=== PATIENT | male | born 2000 | race Caucasian/White ===

== ENCOUNTER 2018-11-13 23:11 | Emergency (ER) | payer SELFPAY ==
--- NOTE | 2018-11-13 23:38 | EDPHYS ---
Physician Documentation [facility] Name: Jason Galeano Age: 18 yrs Sex: Male : 2000 Arrival Date: 11/13/2018 Time: 23:18 Bed 23 Private MD: ED Physician Quinn Rivers HPI: 11/13 23:32 This 18 yrs old Male presents to ER via Ambulatory with complaints of Rash. rn 23:32 The patient's rash thought to be caused by Dermatitis. The rash is located on the body rn diffusely. The rash can be described as erythematous, urticarial, vesicular. 23:32 Onset: The symptoms/episode began/occurred 4 day(s) ago. Severity of symptoms: At their rn worst the symptoms were moderate in the emergency department the symptoms are unchanged. Treatment given at home: OTC lotion/cream. The patient has not experienced similar symptoms in the past. Reports working outside, found out day after that was exposed to poison sumac, + itching and rash that is spreading, using lotion with only mild improvement, another with similar symptoms and rash, no fever, no other exposure. NO trouble breathing or swelling.. Historical: - Allergies: 23:31 No Known Allergies; rv - Home Meds: 23:31 None [Active]; rv - PMHx: 23:31 None; rv - PSHx: 23:31 None; rv - Immunization history:: Adult Immunizations up to date. - Social history:: Smoking status: Patient/guardian denies using tobacco, never smoked, Patient uses street drugs, marijuana. - Ebola Screening: : No symptoms or risks identified at this time. - Family history:: not pertinent. - Hospitalizations: : No recent hospitalization is reported. ROS: 23:32 Constitutional: Negative for fever, chills, and weight loss, Skin: + diffuse skin rash rn Exam: 23:32 Constitutional: This is a well developed, well nourished patient who is awake, alert, rn and in no acute distress. Skin: Warm, dry, + diffuse erythematous and vesicular lesions, no signs of secondary infection, no bullae or skin sloughing. No oral lesions. Vital Signs: 23:30 BP 127 / 74; Pulse 61; Resp 16; Temp 97.9; Pulse Ox 100% ; Weight 74.84 kg; Height 5 rv ft. 10 in. (177.80 cm); Pain 0/10; 23:44 BP 111 / 74; Pulse 66; Resp 16; Temp 98; Pulse Ox 99% ; rv 23:30 Body Mass Index 23.67 (74.84 kg, 177.80 cm) rv MDM: 23:28 Patient medically screened. rn 23:32 Differential diagnosis: allergic reaction, poison sumac. Data reviewed: vital signs, rn nurses notes, and as a result, I will discharge patient. Counseling: I had a detailed discussion with the patient and/or guardian regarding: the historical points, exam findings, and any diagnostic results supporting the discharge/admit diagnosis, the need for outpatient follow up, to return to the emergency department if symptoms worsen or persist or if there are any questions or concerns that arise at home. Special discussion: I discussed with the patient/guardian in detail that at this point there is no indication for admission to the hospital. It is understood, however, that if the symptoms persist or worsen the patient needs to return immediately for re-evaluation. Administered Medications: 23:36 Drug: SOLU-Medrol 125 mg Route: IM; Site: right deltoid; rv 23:44 Follow up: Response: No adverse reaction rv Disposition: 11/13/18 23:38 Discharged to Home. Impression: Dermatitis, unspecified - Poison Sumac. - Condition is Stable. - Discharge Instructions: Poison April Dermatitis. - Prescriptions for Medrol (Yobani) 4 mg Oral Tablets, Dose Pack - take 1 tablet by ORAL route as directed - follow package instructions; 1 packet. - Medication Reconciliation Form, Thank You Letter, Antibiotic Education, Prescription Opioid Use form. - Follow up: Private Physician; When: As needed; Reason: Recheck today's complaints, Re-evaluation by your physician. - Problem is new. - Symptoms are unchanged. Signatures: Quinn Rivers MD MD rn Mert Mclain RN RN rv Corrections: (The following items were deleted from the chart) 23:44 23:38 11/13/2018 23:38 Discharged to Home. Impression: Dermatitis, unspecified - Poison rv Sumac. Condition is Stable. Forms are Medication Reconciliation Form, Thank You Letter, Antibiotic Education, Prescription Opioid Use. Follow up: Private Physician; When: As needed; Reason: Recheck today's complaints, Re-evaluation by your physician. Problem is new. Symptoms are unchanged. rn
--- NOTE | 2018-11-13 23:38 | ER ---
Nurse's Notes [facility] Name: Jason Galeano Age: 18 yrs Sex: Male : 2000 Arrival Date: 11/13/2018 Time: 23:18 Bed 23 Private MD: Diagnosis: Dermatitis, unspecified-Poison Sumac Presentation: 11/13 23:28 Presenting complaint: Patient states: I cutdown a three and exposed to poison sumac 4 rv days ago. having some rashes. treat it with OTC, calamine lotion. rash on my face has gone down but my parents are concerned. Transition of care: patient was not received from another setting of care. Onset of symptoms was November 09, 2018 at 08:00. Risk Assessment: Do you want to hurt yourself or someone else? Patient reports no desire to harm self or others. Initial Sepsis Screen: Does the patient meet any 2 criteria? No. Patient's initial sepsis screen is negative. Does the patient have a suspected source of infection? No. Patient's initial sepsis screen is negative. Care prior to arrival: None. 23:28 Method Of Arrival: Ambulatory rv 23:28 Acuity: LUIGI 5 rv Historical: - Allergies: 23:31 No Known Allergies; rv - Home Meds: 23:31 None [Active]; rv - PMHx: 23:31 None; rv - PSHx: 23:31 None; rv - Immunization history:: Adult Immunizations up to date. - Social history:: Smoking status: Patient/guardian denies using tobacco, never smoked, Patient uses street drugs, marijuana. - Ebola Screening: : No symptoms or risks identified at this time. - Family history:: not pertinent. - Hospitalizations: : No recent hospitalization is reported. Screenin:32 Abuse screen: Denies threats or abuse. Denies injuries from another. Nutritional rv screening: No deficits noted. Tuberculosis screening: No symptoms or risk factors identified. Fall Risk None identified. Assessment: 23:31 General: Appears in no apparent distress. comfortable, Behavior is calm, cooperative. rv Pain: Complains of pain in generalized Quality of pain is described as burning. Neuro: Level of Consciousness is awake, alert, obeys commands, Oriented to person, place, time, situation. Cardiovascular: Patient's skin is warm and dry. Respiratory: Airway is patent. GI: No signs and/or symptoms were reported involving the gastrointestinal system. : No signs and/or symptoms were reported regarding the genitourinary system. EENT: No signs and/or symptoms were reported regarding the EENT system. Derm: Rash noted that is itchy. Musculoskeletal: No signs and/or symptoms reported regarding the musculoskeletal system. Vital Signs: 23:30 BP 127 / 74; Pulse 61; Resp 16; Temp 97.9; Pulse Ox 100% ; Weight 74.84 kg; Height 5 rv ft. 10 in. (177.80 cm); Pain 0/10; 23:44 BP 111 / 74; Pulse 66; Resp 16; Temp 98; Pulse Ox 99% ; rv 23:30 Body Mass Index 23.67 (74.84 kg, 177.80 cm) rv ED Course: 23:18 Patient arrived in ED. es 23:28 Mert Mclain RN is Primary Nurse. rv 23:28 Quinn Rivers MD is Attending Physician. rn 23:30 Triage completed. rv 23:32 Patient has correct armband on for positive identification. Bed in low position. Call rv light in reach. Side rails up X 1. Pulse ox on. NIBP on. 23:32 Patient placed in an exam room, on a stretcher, on pulse oximetry, Patient notified of rv wait time. 23:44 No provider procedures requiring assistance completed. Patient did not have IV access rv during this emergency room visit. Administered Medications: 23:36 Drug: SOLU-Medrol 125 mg Route: IM; Site: right deltoid; rv 23:44 Follow up: Response: No adverse reaction rv Outcome: 23:38 Discharge ordered by . rn 23:44 Discharged to home ambulatory. rv 23:44 Condition: good 23:44 Discharge instructions given to patient, Instructed on discharge instructions, follow up and referral plans. medication usage, Demonstrated understanding of instructions, follow-up care, medications, Prescriptions given X 1. 23:44 Patient left the ED. rv Signatures: Jenni Mitchell Roman, MD MD rn Vicente, Ronaldo, RN RN rv
[2018-11-13] MEDS ORDERED: METHYLPREDNISOLONE 125 MG INJ ONE (23:50)
== END 2018-11-13 23:44 | disposition home or self-care (01) ==
LOC: ER 23:11
DX: L25.5 Unspecified contact dermatitis due to plants, except food (principal)
CPT/HCPCS: 96372; 99283; J2930

== ENCOUNTER 2018-11-25 21:23 | Emergency (ER) | payer OTHER, SELFPAY ==
[2018-11-25] MEDS ORDERED: SMZ./TMP. 800/160 MG TABLET ONE (22:11)
[2018-11-25] MEDS ORDERED: CLINDAMYCIN HCL 150 MG CAP ONE (22:11)
--- NOTE | 2018-11-26 00:45 | ER ---
Nurse's Notes [facility] Name: Jason Galeano Age: 18 yrs Sex: Male : 2000 Arrival Date: 11/25/2018 Time: 21:28 Bed 6 Private MD: Diagnosis: Cellulitis of right lower limb Presentation: 11/25 21:35 Presenting complaint: Patient states: i got bitten by a spider ( becki agustin) last rr5 Monday at right lower leg. started like a blister and I pop it out then now it became like this. no fever episodes. 21:35 Transition of care: patient was not received from another setting of care. Onset of rr5 symptoms was November 20, 2018. Risk Assessment: Do you want to hurt yourself or someone else? Patient reports no desire to harm self or others. Initial Sepsis Screen: Does the patient meet any 2 criteria? No. Patient's initial sepsis screen is negative. Does the patient have a suspected source of infection? No. Patient's initial sepsis screen is negative. Care prior to arrival: None. 21:35 Method Of Arrival: Ambulatory rr5 21:35 Acuity: LUIGI 3 rr5 Triage Assessment: 21:20 Bite description: bite sustained to right lower leg by a spider, animal information: rr5 vaccination(s) is unknown. 21:20 General: Appears in no apparent distress. comfortable, Behavior is calm, cooperative, rr5 appropriate for age. Historical: - Allergies: 21:46 No Known Allergies; rr5 - Home Meds: 21:46 None [Active]; rr5 - PMHx: 21:46 None; rr5 - PSHx: 21:46 None; rr5 - Immunization history:: Adult Immunizations up to date, Last tetanus immunization: unknown. - Social history:: Smoking status: Patient/guardian denies using tobacco, Patient uses street drugs, marijuana, Patient/guardian denies using alcohol. - Ebola Screening: : Patient negative for fever greater than or equal to 101.5 degrees Fahrenheit, and additional compatible Ebola Virus Disease symptoms Patient denies exposure to infectious person Patient denies travel to an Ebola-affected area in the 21 days before illness onset. Screenin:30 Abuse screen: Denies threats or abuse. Denies injuries from another. Nutritional rr5 screening: No deficits noted. Tuberculosis screening: No symptoms or risk factors identified. Fall Risk None identified. Total Tirado Fall Scale indicates No Risk (0-24 pts). Assessment: 21:35 General: Appears in no apparent distress. comfortable, Behavior is calm, cooperative, rr5 appropriate for age. 21:35 Pain: Complains of pain in right lower leg Pain does not radiate. Pain currently is 4 rr5 out of 10 on a pain scale. Quality of pain is described as aching, Pain began gradually, Is intermittent. Neuro: Level of Consciousness is awake, alert, obeys commands, Oriented to person, place, time, situation, Appropriate for age. Cardiovascular: Capillary refill < 3 seconds Patient's skin is warm and dry. Respiratory: Airway is patent Respiratory effort is even, unlabored, Respiratory pattern is regular, symmetrical. GI: No signs and/or symptoms were reported involving the gastrointestinal system. : No signs and/or symptoms were reported regarding the genitourinary system. EENT: No signs and/or symptoms were reported regarding the EENT system. Derm: Skin is intact, Skin is pink, warm \T\ dry. Wound noted right lower leg Wound is ruptured blister appearance, open wound with small drainage. Musculoskeletal: Capillary refill < 3 seconds, Range of motion: intact in all extremities. 22:10 Reassessment: Patient appears in no apparent distress at this time. Patient is alert, rr5 oriented x 3, equal unlabored respirations, skin warm/dry/pink. discharge instruction given and explained without complaints made. Patient states feeling better. Patient states symptoms have improved. Vital Signs: 21:35 BP 119 / 66; Pulse 79; Resp 17; Temp 98.5; Pulse Ox 100% ; Weight 74.84 kg; Height 5 rr5 ft. 10 in. (177.80 cm); Pain 4/10; 21:35 Body Mass Index 23.67 (74.84 kg, 177.80 cm) rr5 ED Course: 21:28 Patient arrived in ED. do 21:30 Patient has correct armband on for positive identification. Bed in low position. Call rr5 light in reach. Side rails up X2. 21:32 Gianni De La Vega PA is PHCP. cp 21:32 Robbie Hartman MD is Attending Physician. cp 21:37 Alessandro Teixeira RN is Primary Nurse. rr5 21:45 Triage completed. rr5 21:47 Arm band placed on. rr5 21:56 Amandeep Kelly MD is Referral Physician. cp 21:56 Referral Physician role handed off by Amandeep Kelly MD cp 21:57 Amandeep Kelly MD is Referral Physician. cp 22:00 Wound care: to cellulitis located on right lower leg was cleaned with Hibiclens, rr5 irrigated with normal saline, dressed with Neosporin, 4X4s, Kerlix, Patient tolerated well. 22:10 No provider procedures requiring assistance completed. Patient did not have IV access rr5 during this emergency room visit. Administered Medications: 22:08 Drug: Clindamycin 300 mg Route: PO; rr5 22:11 Follow up: Response: Medication administered at discharge. rr5 22:08 Drug: Bactrim (160 mg-800 mg (DS) 1 tablet Route: PO; rr5 22:11 Follow up: Response: Medication administered at discharge. rr5 Outcome: 21:57 Discharge ordered by MD. cp 22:10 Discharged to home ambulatory, with family. rr5 22:10 Condition: stable 22:10 Discharge instructions given to patient, Instructed on discharge instructions, follow up and referral plans. medication usage, Demonstrated understanding of instructions, follow-up care, medications, Prescriptions given X 2. 22:14 Patient left the ED. rr5 Signatures: Gianni De La Vega PA PA cp Ogletree, Danielle do Roque, Raymond, RN RN rr5
--- NOTE | 2018-11-26 00:45 | EDPHYS ---
Physician Documentation [facility] Name: Jason Galeano Age: 18 yrs Sex: Male : 2000 Arrival Date: 11/25/2018 Time: 21:28 Bed 6 Private MD: ED Physician Robbie Hartman HPI: 11/25 21:50 This 18 yrs old Male presents to ER via Ambulatory with complaints of Insect cp Bite. 21:50 The patient was bitten on the right lower leg, by a spider. cp 21:50 Onset: The symptoms/episode began/occurred last week. Associated signs and symptoms: cp Pertinent positives: erythema at site, swelling at site, tenderness, drainage, Pertinent negatives: fever. Historical: - Allergies: 21:46 No Known Allergies; rr5 - Home Meds: 21:46 None [Active]; rr5 - PMHx: 21:46 None; rr5 - PSHx: 21:46 None; rr5 - Immunization history:: Adult Immunizations up to date, Last tetanus immunization: unknown. - Social history:: Smoking status: Patient/guardian denies using tobacco, Patient uses street drugs, marijuana, Patient/guardian denies using alcohol. - Ebola Screening: : Patient negative for fever greater than or equal to 101.5 degrees Fahrenheit, and additional compatible Ebola Virus Disease symptoms Patient denies exposure to infectious person Patient denies travel to an Ebola-affected area in the 21 days before illness onset. ROS: 21:53 Constitutional: Negative for body aches, chills, fever, poor PO intake. cp 21:53 Eyes: Negative for injury, pain, redness, and discharge. cp 21:53 Skin: Positive for erythema, swelling, of the right lower leg. cp 21:53 Cardiovascular: Negative for chest pain. cp 21:53 Respiratory: Negative for cough. 21:53 Abdomen/GI: Negative for abdominal pain. 21:53 All other systems are negative. Exam: 21:55 Constitutional: The patient appears in no acute distress, alert, awake, non-toxic, well cp developed, well nourished. 21:55 Head/Face: Normocephalic, atraumatic. cp 21:55 Chest/axilla: Inspection: normal. cp 21:55 Cardiovascular: Rate: normal. 21:55 Respiratory: the patient does not display signs of respiratory distress, Respirations: normal, no use of accessory muscles, labored breathing, is not present. 21:55 Skin: cellulitis, that is mild, well demarcated, on the right lower leg. Vital Signs: 21:35 BP 119 / 66; Pulse 79; Resp 17; Temp 98.5; Pulse Ox 100% ; Weight 74.84 kg; Height 5 rr5 ft. 10 in. (177.80 cm); Pain 4/10; 21:35 Body Mass Index 23.67 (74.84 kg, 177.80 cm) rr5 MDM: 21:32 Patient medically screened. cp 21:57 Data reviewed: vital signs, nurses notes, and as a result, I will discharge patient. cp 21:57 Counseling: I had a detailed discussion with the patient and/or guardian regarding: the cp historical points, exam findings, and any diagnostic results supporting the discharge/admit diagnosis, the need for outpatient follow up, a general surgeon. Administered Medications: 22:08 Drug: Clindamycin 300 mg Route: PO; rr5 22:11 Follow up: Response: Medication administered at discharge. rr5 22:08 Drug: Bactrim (160 mg-800 mg (DS) 1 tablet Route: PO; rr5 22:11 Follow up: Response: Medication administered at discharge. rr5 Disposition: 11/26 09:30 Co-signature as Attending Physician, Robbie Hartman MD I agree with the assessment and wa plan of care. Disposition: 11/25/18 21:57 Discharged to Home. Impression: Cellulitis of right lower limb. - Condition is Stable. - Discharge Instructions: Cellulitis, Adult. - Prescriptions for Clindamycin HCl 300 mg Oral Capsule - take 1 capsule by ORAL route every 6 hours for 10 days; 40 capsule. Bactrim DS 800- 160 mg Oral Tablet - take 1 tablet by ORAL route every 12 hours for 10 days; 20 tablet. - Medication Reconciliation Form, Thank You Letter, Antibiotic Education, Prescription Opioid Use form. - Follow up: Amandeep Kelly MD; When: 1 - 2 days; Reason: Wound Recheck. Follow up: Amandeep Kelly MD; When: 2 - 3 days; Reason: Wound Recheck. - Problem is new. - Symptoms have improved. Signatures: Dispatcher [employer] EDRI Page, Gianni, PA PA cp Robbie Hartman MD MD wa Roque, Raymond RN RN rr5 Corrections: (The following items were deleted from the chart) 11/25 22:14 21:57 11/25/2018 21:57 Discharged to Home. Impression: Cellulitis of right lower limb. rr5 Condition is Stable. Forms are Medication Reconciliation Form, Thank You Letter, Antibiotic Education, Prescription Opioid Use. Follow up: Amandeep Kelly; When: 2 - 3 days; Reason: Wound Recheck. Problem is new. Symptoms have improved. cp
== END 2018-11-25 22:14 | disposition home or self-care (01) ==
LOC: ER 21:23
DX: L03.115 Cellulitis of right lower limb (principal)
CPT/HCPCS: 87070; 87205; 99284

== ENCOUNTER 2019-01-28 07:38 | Emergency (ER) | payer OTHER ==
[2019-01-28] MEDS ORDERED: CEPHALEXIN 250 MG CAP ONE (08:01)
[2019-01-28] MEDS ORDERED: SMZ./TMP. 800/160 MG TABLET ONE (08:01)
--- NOTE | 2019-01-28 08:07 | EDPHYS ---
Physician Documentation [facility] Name: Jason Galeano Age: 18 yrs Sex: Male : 2000 Arrival Date: 01/28/2019 Time: 07:42 Bed 5 Private MD: ED Physician Gianni Pretty HPI: 01/28 08:03 This 18 yrs old Male presents to ER via Ambulatory with complaints of kb Infection on leg. 08:04 The patient presents with an abscess of the right knee. Description: draining, kb erythematous, swollen. Onset: The symptoms/episode began/occurred 2 day(s) ago. Possible cause(s): insect sting. Associated signs and symptoms: Pertinent positives: drainage, erythema, swelling, Pertinent negatives: foreign body sensation, fever, headache, nausea, shortness of breath, vomiting. Modifying factors: the symptoms are alleviated by nothing, the symptoms are aggravated by nothing. Severity of symptoms: At their worst the symptoms were moderate, in the emergency department the symptoms are unchanged. The patient has not experienced similar symptoms in the past. The patient has not recently seen a physician. Historical: - Allergies: 07:50 No Known Allergies; tw2 - Home Meds: 07:50 None [Active]; tw2 - PMHx: 07:50 None; tw2 - PSHx: 07:50 None; tw2 - Immunization history:: Adult Immunizations. - Social history:: Smoking status: . - Ebola Screening: : Patient denies travel to an Ebola-affected area in the 21 days before illness onset. ROS: 07:59 Constitutional: Negative for fever, chills, and weight loss, ENT: Negative for injury, kb pain, and discharge, Neck: Negative for injury, pain, and swelling, Cardiovascular: Negative for chest pain, palpitations, and edema, Respiratory: Negative for shortness of breath, cough, wheezing, and pleuritic chest pain, Abdomen/GI: Negative for abdominal pain, nausea, vomiting, diarrhea, and constipation, MS/Extremity: Negative for injury and deformity, Neuro: Negative for headache, weakness, numbness, tingling, and seizure. 07:59 Skin: Positive for abscess, erythema, swelling, of the right knee. Exam: 07:59 Constitutional: This is a well developed, well nourished patient who is awake, alert, kb and in no acute distress. Head/Face: Normocephalic, atraumatic. Neck: Trachea midline, no thyromegaly or masses palpated, and no cervical lymphadenopathy. Supple, full range of motion without nuchal rigidity, or vertebral point tenderness. No Meningismus. Chest/axilla: Normal chest wall appearance and motion. Nontender with no deformity. No lesions are appreciated. Cardiovascular: Regular rate and rhythm with a normal S1 and S2. No gallops, murmurs, or rubs. Normal PMI, no JVD. No pulse deficits. Respiratory: Lungs have equal breath sounds bilaterally, clear to auscultation and percussion. No rales, rhonchi or wheezes noted. No increased work of breathing, no retractions or nasal flaring. Abdomen/GI: Soft, non-tender, with normal bowel sounds. No distension or tympany. No guarding or rebound. No evidence of tenderness throughout. MS/ Extremity: Pulses equal, no cyanosis. Neurovascular intact. Full, normal range of motion. Neuro: Awake and alert, GCS 15, oriented to person, place, time, and situation. Cranial nerves II-XII grossly intact. Motor strength 5/5 in all extremities. Sensory grossly intact. Cerebellar exam normal. Normal gait. 07:59 Skin: abscess, that is small, of the right knee, with drainage, with fluctuance, with surrounding cellulitis, that is mild. Vital Signs: 07:51 BP 114 / 75; Pulse 113; Resp 18; Temp 98.1(O); Pulse Ox 98% on R/A; Weight 74.84 kg tw2 (R); Height 5 ft. 10 in. (177.80 cm); Pain 8/10; 08:07 BP 118 / 69; Pulse 83; Resp 17; Pulse Ox 99% on R/A; tw2 07:51 Body Mass Index 23.67 (74.84 kg, 177.80 cm) tw2 Procedures: 07:59 I \T\ D: Incision and drainage was performed for an abscess of the right right knee kb Drained moderate amount purulent fluid. Dressing: sterile 4x4 gauze, Abscess was open and draining already, drained a moderate amount of purulent fluid with pressure. MDM: 07:45 Patient medically screened. [facility] 08:03 Data reviewed: vital signs, nurses notes. Data interpreted: Pulse oximetry: on room air kb is 98 %. Interpretation: normal. Counseling: I had a detailed discussion with the patient and/or guardian regarding: the historical points, exam findings, and any diagnostic results supporting the discharge/admit diagnosis, the need for outpatient follow up, a family practitioner, to return to the emergency department if symptoms worsen or persist or if there are any questions or concerns that arise at home. 01/28 07:59 Order name: Wound Culture kb 01/28 08:07 Order name: Wound dressing; Complete Time: 08:07 tw2 Administered Medications: 08:05 Drug: Bactrim (160 mg-800 mg (DS) 1 tablet Route: PO; tw2 08:14 Follow up: Response: No adverse reaction tw2 08:05 Drug: KeFLEX 500 mg Route: PO; tw2 08:14 Follow up: Response: No adverse reaction tw2 Disposition: 01/28/19 08:06 Discharged to Home. Impression: Cutaneous abscess of right lower limb. - Condition is Stable. - Discharge Instructions: Skin Abscess, [id number], Incision and Drainage, Care After. - Prescriptions for Keflex 500 mg Oral Capsule - take 1 capsule by ORAL route every 8 hours for 10 days; 30 capsule. Bactrim DS 800- 160 mg Oral Tablet - take 1 tablet by ORAL route every 12 hours for 10 days; 20 tablet. - Medication Reconciliation Form, Thank You Letter, Antibiotic Education, Prescription Opioid Use, Work release form form. - Follow up: Emergency Department; When: As needed; Reason: Worsening of condition. Follow up: Private Physician; When: 2 - 3 days; Reason: Recheck today's complaints, Continuance of care, Re-evaluation by your physician. Addendum: 01/29/2019 20:29 Co-signature as Attending Physician, Gianni Pretty MD I agree with the assessment and c aldana plan of care. Signatures: Dispatcher [employer] Chica Shearer, ELECTROPHYSIOLOGY TECH-C ELECTROPHYSIOLOGY TECH-Gianni Selby MD MD cha Wise, Tara, RN RN tw2 Corrections: (The following items were deleted from the chart) 01/28 08:14 08:06 01/28/2019 08:06 Discharged to Home. Impression: Cutaneous abscess of right lower tw2 limb. Condition is Stable. Forms are Work release form, Medication Reconciliation Form, Thank You Letter, Antibiotic Education, Prescription Opioid Use. Follow up: Emergency Department; When: As needed; Reason: Worsening of condition. Follow up: Private Physician; When: 2 - 3 days; Reason: Recheck today's complaints, Continuance of care, Re-evaluation by your physician. kb
--- NOTE | 2019-01-28 08:07 | ER ---
Nurse's Notes [facility] Name: Jason Galeano Age: 18 yrs Sex: Male : 2000 Arrival Date: 01/28/2019 Time: 07:42 Bed 5 Private MD: Diagnosis: Cutaneous abscess of right lower limb Presentation: 01/28 07:49 Presenting complaint: Patient states: i noticed yesterday that this got really worse on tw2 my RIGHT knee, i was bitten by a brown recluse spider previous and i know they like to bite in the same place, but its gotten a lot worse. Transition of care: patient was not received from another setting of care. Onset of symptoms was January 28, 2019. Risk Assessment: Do you want to hurt yourself or someone else? Patient reports no desire to harm self or others. Initial Sepsis Screen: Does the patient meet any 2 criteria? No. Patient's initial sepsis screen is negative. Does the patient have a suspected source of infection? No. Patient's initial sepsis screen is negative. Care prior to arrival: None. 07:49 Method Of Arrival: Ambulatory tw2 07:49 Acuity: LUIGI 3 tw2 Triage Assessment: 07:51 General: Appears in no apparent distress. Behavior is calm, cooperative, appropriate tw2 for age. Pain: Complains of pain in right knee. Historical: - Allergies: 07:50 No Known Allergies; tw2 - Home Meds: 07:50 None [Active]; tw2 - PMHx: 07:50 None; tw2 - PSHx: 07:50 None; tw2 - Immunization history:: Adult Immunizations. - Social history:: Smoking status: . - Ebola Screening: : Patient denies travel to an Ebola-affected area in the 21 days before illness onset. Screenin:51 Abuse screen: Denies threats or abuse. Nutritional screening: No deficits noted. tw2 Tuberculosis screening: No symptoms or risk factors identified. Fall Risk None identified. Assessment: 07:52 General: Appears in no apparent distress. Behavior is calm, cooperative, appropriate tw2 for age. Neuro: Level of Consciousness is awake, alert, obeys commands, Oriented to person, place, time, situation. Cardiovascular: Heart tones S1 S2 Patient's skin is warm and dry. Respiratory: Airway is patent Respiratory effort is even, unlabored, Respiratory pattern is regular, symmetrical, Breath sounds are clear bilaterally. GI: No signs and/or symptoms were reported involving the gastrointestinal system. : No signs and/or symptoms were reported regarding the genitourinary system. EENT: No signs and/or symptoms were reported regarding the EENT system. Derm: Wound noted right knee Wound is red, raised with black center scab noted on right knee. Musculoskeletal: Range of motion: intact in all extremities. Vital Signs: 07:51 BP 114 / 75; Pulse 113; Resp 18; Temp 98.1(O); Pulse Ox 98% on R/A; Weight 74.84 kg tw2 (R); Height 5 ft. 10 in. (177.80 cm); Pain 8/10; 08:07 BP 118 / 69; Pulse 83; Resp 17; Pulse Ox 99% on R/A; tw2 07:51 Body Mass Index 23.67 (74.84 kg, 177.80 cm) tw2 ED Course: 07:42 Patient arrived in ED. mr 07:42 [facility]ica Jauregui [facility]C [facility]. kb 07:42 Gianni Pretty MD is Attending Physician. kb 07:49 Arianne Leggett, MORRIS is Primary Nurse. tw2 07:49 Bed in low position. Call light in reach. tw2 07:50 Triage completed. tw2 07:50 Arm band placed on. tw2 08:08 Dressings: Rayshawn x 1 right knee 4X4s X 4; right leg Neosporin applied. tw2 08:08 No provider procedures requiring assistance completed. Patient did not have IV access tw2 during this emergency room visit. Administered Medications: 08:05 Drug: Bactrim (160 mg-800 mg (DS) 1 tablet Route: PO; tw2 08:14 Follow up: Response: No adverse reaction tw2 08:05 Drug: KeFLEX 500 mg Route: PO; tw2 08:14 Follow up: Response: No adverse reaction tw2 Outcome: 08:06 Discharge ordered by . kb 08:14 Discharged to home ambulatory. tw2 08:14 Condition: stable 08:14 Discharge instructions given to patient, Instructed on discharge instructions, follow up and referral plans. medication usage, Demonstrated understanding of instructions, follow-up care, medications, wound care, Prescriptions given X 2. 08:14 Patient left the ED. tw2 Signatures: Chica Jauregui, DRIVER RETRAINING INSTRUCTOR-C DRIVER RETRAINING INSTRUCTOR-Ckb Cecile Cabrera mr Arianne Leggett, RN RN tw2
== END 2019-01-28 08:14 | disposition home or self-care (01) ==
LOC: ER 07:38
PROC: 0J9N0ZZ Drainage of Right Lower Leg Subcutaneous Tissue and Fascia, Open Approach (ICD-10-PCS; principal; 2019-01-28)
DX: L02.415 Cutaneous abscess of right lower limb (principal)
CPT/HCPCS: 87070; 87077; 87186; 87205; 99283

== ENCOUNTER 2019-02-13 20:22 | Emergency (ER) | payer OTHER ==
--- NOTE | 2019-02-13 22:17 | ER ---
Nurse's Notes [facility] Name: Jason Galeano Age: 18 yrs Sex: Male : 2000 Arrival Date: 02/13/2019 Time: 20:25 Bed 25 Private MD: Diagnosis: Cellulitis of the Hand Presentation: 02/13 21:10 Presenting complaint: Patient states: "I started with a bump on my left hand and over aa5 the last few days it has grown and it's red and painful". 21:10 Transition of care: patient was not received from another setting of care. Onset of aa5 symptoms was February 2019. Risk Assessment: Do you want to hurt yourself or someone else? Patient reports no desire to harm self or others. Initial Sepsis Screen: Does the patient meet any 2 criteria? No. Patient's initial sepsis screen is negative. Does the patient have a suspected source of infection? No. Patient's initial sepsis screen is negative. Care prior to arrival: None. 21:10 Acuity: LUIGI 5 aa5 21:10 Method Of Arrival: Ambulatory aa5 Triage Assessment: 22:01 Bite description: bite sustained to left hand by INSECT, animal information: rv vaccination(s) is not applicable. General: Appears in no apparent distress. comfortable, Behavior is calm, cooperative. Historical: - Allergies: 21:15 No Known Allergies; aa5 - PMHx: 21:15 None; aa5 - PSHx: 21:15 None; aa5 - Immunization history:: Last tetanus immunization: unknown. - Social history:: Smoking status: Patient/guardian denies using tobacco. - Ebola Screening: : No symptoms or risks identified at this time. Screenin:00 Abuse screen: Denies threats or abuse. Denies injuries from another. Nutritional rv screening: No deficits noted. Tuberculosis screening: No symptoms or risk factors identified. Fall Risk None identified. Assessment: 21:59 General: Appears in no apparent distress. comfortable, Behavior is calm, cooperative. rv Pain: Complains of pain in left hand. Neuro: Level of Consciousness is awake, alert, obeys commands, Oriented to person, place, time, situation. Cardiovascular: Patient's skin is warm and dry. Respiratory: Airway is patent. GI: No signs and/or symptoms were reported involving the gastrointestinal system. : No signs and/or symptoms were reported regarding the genitourinary system. EENT: No signs and/or symptoms were reported regarding the EENT system. Derm: Skin is intact, Skin is pink, warm \\T\\ dry. Musculoskeletal: Swelling present in left hand. Vital Signs: 21:15 BP 113 / 62; Pulse 90; Resp 18 S; Temp 98.6(O); Pulse Ox 100% on R/A; Weight 72.57 kg aa5 (R); Height 5 ft. 10 in. (177.80 cm) (R); Pain 4/10; 21:15 Body Mass Index 22.96 (72.57 kg, 177.80 cm) aa5 ED Course: 20:25 Patient arrived in ED. ag3 20:34 Yi Asencio FNP-C is PHCP. snw 20:34 Gianni Pretty MD is Attending Physician. snw 21:10 Arm band placed on. aa5 21:15 Triage completed. aa5 21:47 Barry Mccullough PA is PHCP. [facility] 21:47 Gianni Pretty MD is Attending Physician. [facility] 21:59 Mert Mclain, MORRIS is Primary Nurse. rv 22:00 Patient has correct armband on for positive identification. Pulse ox on. NIBP on. rv 22:01 No provider procedures requiring assistance completed. Patient did not have IV access rv during this emergency room visit. 22:15 Eze Villarreal MD is Referral Physician. [facility] Administered Medications: No medications were administered Outcome: 22:16 Discharge ordered by . [facility] 22:27 Discharged to home ambulatory. rv 22:27 Condition: good 22:27 Discharge instructions given to patient, Instructed on discharge instructions, follow up and referral plans. medication usage, Demonstrated understanding of instructions, follow-up care, medications, Prescriptions given X 2. 22:27 Patient left the ED. rv Signatures: Yi Asencio FNP-C BRICK STACKER-Csnw Barry Mccullough PA PA jmm Calderon, Audri RN RN [facility] Mert Mclain RN RN Ashlie Patel 3
--- NOTE | 2019-02-13 22:18 | EDPHYS ---
Physician Documentation [facility] Name: Jason Galeano Age: 18 yrs Sex: Male : 2000 Arrival Date: 02/13/2019 Time: 20:25 Bed 25 Private MD: MIKAELA Physician Gianni Pretty HPI: 02/13 22:10 This 18 yrs old Male presents to ER via Ambulatory with complaints of Insect jmm Bite. 22:10 The patient or guardian reports pain. Onset: The symptoms/episode began/occurred jmm gradually. Modifying factors: The symptoms are alleviated by nothing, the symptoms are aggravated by nothing. Associated signs and symptoms: Pertinent negatives: fever. This is a 18 year old male with no known chronic medical conditions that presents to the ED with complaints of erythema to the left hand. Patient is unsure of the cause. Denies known injury. Swelling has increased over the past 3 days. . Historical: - Allergies: 21:15 No Known Allergies; aa5 - PMHx: 21:15 None; aa5 - PSHx: 21:15 None; aa5 - Immunization history:: Last tetanus immunization: unknown. - Social history:: Smoking status: Patient/guardian denies using tobacco. - Ebola Screening: : No symptoms or risks identified at this time. ROS: 22:10 Constitutional: Negative for fever, chills, and weight loss, Cardiovascular: Negative jmm for chest pain, palpitations, and edema, Respiratory: Negative for shortness of breath, cough, wheezing, and pleuritic chest pain, Abdomen/GI: Negative for abdominal pain, nausea, vomiting, diarrhea, and constipation. 22:10 Skin: Positive for erythema, swelling. 22:10 All other systems are negative. Exam: 22:10 Constitutional: This is a well developed, well nourished patient who is awake, alert, jmm and in no acute distress. Head/Face: atraumatic. Eyes: EOMI, no conjunctival erythema appreciated ENT: Moist Mucus Membranes Neck: Trachea midline, Supple Chest/axilla: Normal chest wall appearance and motion. Cardiovascular: Regular rate and rhythm. No edema appreciated Respiratory: Normal respirations, no respiratory distress appreciated Abdomen/GI: Non distended, soft Back: Normal ROM 22:10 Musculoskeletal/extremity: FROM noted to the left 1st phalanx, < 2 sec distal cap refill, NVI. 22:10 Skin: erythema and induration noted to the base of the left 1st phalanx, non fluctuant. 22:10 Neuro: Orientation: is normal, Mentation: is normal, Memory: is normal. 22:10 Psych: Behavior/mood is pleasant, cooperative. Vital Signs: 21:15 BP 113 / 62; Pulse 90; Resp 18 S; Temp 98.6(O); Pulse Ox 100% on R/A; Weight 72.57 kg aa5 (R); Height 5 ft. 10 in. (177.80 cm) (R); Pain 4/10; 21:15 Body Mass Index 22.96 (72.57 kg, 177.80 cm) aa5 MDM: 21:52 Patient medically screened. [facility] 22:14 Data reviewed: vital signs, nurses notes. Counseling: I had a detailed discussion with devaughn the patient and/or guardian regarding: the historical points, exam findings, and any diagnostic results supporting the discharge/admit diagnosis, the need for outpatient follow up, to return to the emergency department if symptoms worsen or persist or if there are any questions or concerns that arise at home. ED course: Patient is alert and non toxic in appearance in the ED. Patient advised to follow up with hand. Advised to return to the ED if symptoms worsen. patient understood and agrees with the plan of care. . Administered Medications: No medications were administered Disposition: 02/13/19 22:16 Discharged to Home. Impression: Cellulitis of the Hand. - Condition is Stable. - Discharge Instructions: Cellulitis, Adult. - Prescriptions for Doxycycline Hyclate 100 mg Oral Tablet - take 1 tablet by ORAL route every 12 hours; 20 tablet. Bactrim DS 800- 160 mg Oral Tablet - take 1 tablet by ORAL route every 12 hours for 10 days; 20 tablet. - Medication Reconciliation Form, Thank You Letter, Antibiotic Education, Prescription Opioid Use, Work release form form. - Follow up: Eze Villarreal MD; When: 2 - 3 days; Reason: Recheck today's complaints, Continuance of care, Re-evaluation by your physician. Addendum: 02/18/2019 08:18 Co-signature as Attending Physician, Gianni Pretty MD I agree with the assessment and c aldana plan of care. Signatures: iGanni Pretty MD MD cha Mickail, Joel, PA PA jmm Eason, Sapphire, RN RN aa5 Mert Mclain, RN RN rv Corrections: (The following items were deleted from the chart) 02/13 22:27 22:16 02/13/2019 22:16 Discharged to Home. Impression: Cellulitis of the Hand. rv Condition is Stable. Forms are Medication Reconciliation Form, Thank You Letter, Antibiotic Education, Prescription Opioid Use. Follow up: Eze Villarreal; When: 2 - 3 days; Reason: Recheck today's complaints, Continuance of care, Re-evaluation by your physician. devaughn
[2019-02-13 22:54] VITALS: BP 113/62; TEMP 98.6; O2SAT 100
== END 2019-02-13 22:27 | disposition home or self-care (01) ==
LOC: ER 20:22
DX: L03.114 Cellulitis of left upper limb (principal)
CPT/HCPCS: 99283

== ENCOUNTER 2021-02-03 00:48 | Emergency (ER) | payer OTHER ==
--- OUTSIDE RECORDS SUMMARY | 2021-02-03 00:51 | XMS REPORT | Continuity of Care Document ---
:2000 Author Organization [facility] t Address [address] [place] [address] Dr. Joyce [address] [place] [id number] Care Team Providers Name Role Phone Unavailable Unavailable Unavailable Problems This patient has no known problems. Allergies, Adverse Reactions, Alerts This patient has no known allergies or adverse reactions. Medications This patient has no known medications. Procedures This patient has no known procedures. Results This patient has no known results.
[2021-02-03] MEDS ORDERED: METHYLPREDNISOLONE 125 MG INJ ONE (02:06)
[2021-02-03] MEDS ORDERED: FAMOTIDINE 20 MG TAB ONE (02:06)
[2021-02-03] MEDS ORDERED: DIPHENHYDRAMINE 50 MG/ML VIAL ONE (02:06)
--- NOTE | 2021-02-03 02:17 | ER ---
Nurse's Notes [facility] Name: Jason Galeano Age: 20 yrs Sex: Male : 2000 Arrival Date: 02/03/2021 Time: 00:51 Bed 12 Private MD: Diagnosis: Rash and other nonspecific skin eruption Presentation: 02/03 01:21 Chief complaint: Patient states: felt a stinging sensation in right hand while asleep, iw then he started itching all over, right ear went numb , got hot all over. Coronavirus screen: At this time, the client does not indicate any symptoms associated with coronavirus-19. Ebola Screen: Patient negative for fever greater than or equal to 101.5 degrees Fahrenheit, and additional compatible Ebola Virus Disease symptoms Patient denies exposure to infectious person. Patient denies travel to an Ebola-affected area in the 21 days before illness onset. No symptoms or risks identified at this time. Initial Sepsis Screen: Does the patient meet any 2 criteria? No. Patient's initial sepsis screen is negative. Does the patient have a suspected source of infection? No. Patient's initial sepsis screen is negative. Risk Assessment: Do you want to hurt yourself or someone else? Patient reports no desire to harm self or others. Onset of symptoms was February 03, 2021. 01:21 Method Of Arrival: Ambulatory iw 01:21 Acuity: LUIGI 3 iw Historical: - Allergies: 01:23 No Known Allergies; iw - Home Meds: 01:23 None [Active]; iw - PMHx: 01:23 None; iw - PSHx: 01:23 None; iw - Immunization history:: Client reports having NOT received the Covid vaccine. - Social history:: Smoking status: Patient reports the use of cigarette tobacco products, smokes one pack cigarettes per day. - Family history:: not pertinent. Vital Signs: 01:21 BP 122 / 66; Pulse 64; Resp 16; Temp 98.4; Pulse Ox 100% on R/A; Weight 74.84 kg; iw Height 5 ft. 10 in. (177.80 cm); 02:27 BP 109 / 58; Pulse 88; Resp 18; Pulse Ox 100% on R/A; Pain 0/10; wg 01:21 Body Mass Index 23.67 (74.84 kg, 177.80 cm) ED Course: 00:51 Patient arrived in ED. mr 01:23 Triage completed. iw 01:23 Arm band placed on. 01:28 Srinivas Coello MD is Attending Physician. [facility] 01:43 Garret Donaldson, RN is Primary Nurse. em Administered Medications: 01:49 Drug: Benadryl (diphenhydrAMINE) 50 mg Route: IM; Site: right deltoid; wg 01:58 Follow up: Response: No adverse reaction wg 01:49 Drug: SOLU-Medrol (methylPREDNISolone sodium succinate) 125 mg Route: IM; Site: right wg deltoid; 01:58 Follow up: Response: No adverse reaction wg 01:49 Drug: Pepcid (famotidine) 20 mg Route: PO; wg 01:58 Follow up: Response: No adverse reaction Outcome: 02:16 Discharge ordered by . ky2 02:26 Discharged to home ambulatory, with friend. 02:26 Condition: stable 02:26 Discharge instructions given to patient, Instructed on discharge instructions, follow up and referral plans. medication usage, Demonstrated understanding of instructions, follow-up care, medications, Prescriptions given X 3. 02:28 Patient left the ED. Signatures: Cecile Cabrera mr Garret Donaldson, RN RN Arlene Meneses RN RN Srinivas Coello MD MD ma2 Gamba, Liam, RN
--- NOTE | 2021-02-03 02:17 | EDPHYS ---
Physician Documentation [facility] [place] Name: Jason Galeano Age: 20 yrs Sex: Male : 2000 Arrival Date: 02/03/2021 Time: 00:51 Bed 12 Private MD: ED Physician Srinivas Coello HPI: 02/03 02:14 This 20 yrs old Male presents to ER via Ambulatory with complaints of Insect ma2 Bite, Swelling. 02:14 The patient presents with itching, redness of skin. Onset: The symptoms/episode ma2 began/occurred gradually, 1 day(s) ago. Associated signs and symptoms: Pertinent negatives: chest pain, headache, Light headed rash. Severity of symptoms: At their worst the symptoms were mild in the emergency department the symptoms are unchanged. The patient has not experienced similar symptoms in the past. Historical: - Allergies: 01:23 No Known Allergies; iw - Home Meds: :23 None [Active]; iw - PMHx: :23 None; iw - PSHx: :23 None; iw - Immunization history:: Client reports having NOT received the Covid vaccine. - Social history:: Smoking status: Patient reports the use of cigarette tobacco products, smokes one pack cigarettes per day. - Family history:: not pertinent. ROS: 02:14 Constitutional: Negative for fever, chills, and weight loss. ma2 02:14 All other systems are negative. Exam: 02:14 Constitutional: This is a well developed, well nourished patient who is awake, alert, ma2 and in no acute distress. Head/Face: Normocephalic, atraumatic. Eyes: Pupils equal round and reactive to light, extra-ocular motions intact. Lids and lashes normal. Conjunctiva and sclera are non-icteric and not injected. Cornea within normal limits. Periorbital areas with no swelling, redness, or edema. ENT: Nares patent. No nasal discharge, no septal abnormalities noted. Tympanic membranes are normal and external auditory canals are clear. Oropharynx with no redness, swelling, or masses, exudates, or evidence of obstruction, uvula midline. Mucous membranes moist. Neck: Trachea midline, no thyromegaly or masses palpated, and no cervical lymphadenopathy. Supple, full range of motion without nuchal rigidity, or vertebral point tenderness. No Meningismus. Chest/axilla: Normal chest wall appearance and motion. Nontender with no deformity. No lesions are appreciated. Cardiovascular: Regular rate and rhythm with a normal S1 and S2. No gallops, murmurs, or rubs. Normal PMI, no JVD. No pulse deficits. Respiratory: Lungs have equal breath sounds bilaterally, clear to auscultation and percussion. No rales, rhonchi or wheezes noted. No increased work of breathing, no retractions or nasal flaring. Abdomen/GI: Soft, non-tender, with normal bowel sounds. No distension or tympany. No guarding or rebound. No evidence of tenderness throughout. Back: No spinal tenderness. No costovertebral tenderness. Full range of motion. Skin: Patient has redness, and hives in the right arm and right face, no facial swelling. Or airway involvement. Warm, dry with normal turgor. Normal color with no rashes, no lesions, and no evidence of cellulitis. MS/ Extremity: Pulses equal, no cyanosis. Neurovascular intact. Full, normal range of motion. Neuro: Awake and alert, GCS 15, oriented to person, place, time, and situation. Cranial nerves II-XII grossly intact. Motor strength 5/5 in all extremities. Sensory grossly intact. Cerebellar exam normal. Normal gait. Vital Signs: 01:21 BP 122 / 66; Pulse 64; Resp 16; Temp 98.4; Pulse Ox 100% on R/A; Weight 74.84 kg; iw Height 5 ft. 10 in. (177.80 cm); 02:27 BP 109 / 58; Pulse 88; Resp 18; Pulse Ox 100% on R/A; Pain 0/10; wg 01:21 Body Mass Index 23.67 (74.84 kg, 177.80 cm) iw MDM: 01:28 Patient medically screened. ma2 02:14 Differential diagnosis: non IgE mediated drug reaction urticaria, Vasovagal Reactions. ma2 Data reviewed: vital signs, nurses notes, EMS record. Counseling: I had a detailed discussion with the patient and/or guardian regarding: the historical points, exam findings, and any diagnostic results supporting the discharge/admit diagnosis, the presence of at least one elevated blood pressure reading (>120/80) during this emergency department visit, the need for outpatient follow up. Response to treatment: the patient's symptoms have markedly improved after treatment. Administered Medications: 01:49 Drug: Benadryl (diphenhydrAMINE) 50 mg Route: IM; Site: right deltoid; wg 01:58 Follow up: Response: No adverse reaction wg 01:49 Drug: SOLU-Medrol (methylPREDNISolone sodium succinate) 125 mg Route: IM; Site: right wg deltoid; 01:58 Follow up: Response: No adverse reaction wg 01:49 Drug: Pepcid (famotidine) 20 mg Route: PO; wg 01:58 Follow up: Response: No adverse reaction Disposition Summary: 02/03/21 02:16 Discharge Ordered Location: Home ma2 Condition: Stable ma2 Diagnosis - Rash and other nonspecific skin eruption ma2 Followup: ma2 - With: Private Physician - When: Tomorrow - Reason: Continuance of care Discharge Instructions: - Discharge Summary Sheet ma2 - Hives ma2 - Rash, Adult, [id number] ma2 Forms: - Medication Reconciliation Form ma2 - Thank You Letter ma2 - Antibiotic Education ma2 - Prescription Opioid Use ma2 Prescriptions: - Benadryl 25 mg Oral Capsule - take 1 capsule by ORAL route every 6 hours As needed; 30 tablet; Refills: 0, ma2 Product Selection Permitted - Pepcid 20 mg Oral Tablet - take 1 tablet by ORAL route every 12 hours for 10 days; 20 tablet; Refills: 0, ma2 Product Selection Permitted - Medrol (Yobani) 4 mg Oral Tablets, Dose Pack - take 1 tablet by ORAL route as directed - follow package instructions; 1 ma2 packet; Refills: 0, Product Selection Permitted Signatures: Arlene Medeiros RN RN Srinivas Coello MD MD [facility] Donald Elizondo RN
[2021-02-03 02:32] VITALS: TEMP 98.4; O2SAT 100
[2021-02-03 02:34] VITALS: BP 109/58
== END 2021-02-03 02:28 | disposition home or self-care (01) ==
LOC: ER 00:48
DX: R21 Rash and other nonspecific skin eruption (principal); F17.210 Nicotine dependence, cigarettes, uncomplicated
CPT/HCPCS: 96372; 99283; J1200; J2930

== ENCOUNTER 2021-06-10 20:33 | Emergency (ER) | payer OTHER ==
--- OUTSIDE RECORDS SUMMARY | 2021-06-10 20:37 | XMS REPORT | Continuity of Care Document ---
:2000 Author Organization [facility] t Address [facility] [address] [place] [address] Care Team Providers Name Role Phone Unavailable Unavailable Unavailable Problems This patient has no known problems. Allergies, Adverse Reactions, Alerts This patient has no known allergies or adverse reactions. Medications This patient has no known medications. Procedures This patient has no known procedures. Results This patient has no known results.
--- NOTE | 2021-06-11 03:08 | ER ---
Nurse's Notes [facility] [place] Name: Jason Galeano Age: 20 yrs Sex: Male : 2000 Arrival Date: 06/10/2021 Time: 20:40 Bed 23 Private MD: Diagnosis: Presentation: 06/10 21:50 Chief complaint: Patient states: I woke up this morning and went to work started vc1 feeling nauseous, cold chills, and having a hard time focusing. Coronavirus screen: Vaccine status: Patient reports being unvaccinated. Client denies travel out of the [place] in the last 14 days. chills, congestion, cough unrelated to allergies, diarrhea, fatigue, headache, nausea, Client presents with at least one sign or symptom that may indicate coronavirus-19. Standard/surgical mask placed on the client. Ebola Screen: No symptoms or risks identified at this time. Initial Sepsis Screen: Does the patient meet any 2 criteria? No. Patient's initial sepsis screen is negative. Does the patient have a suspected source of infection? No. Patient's initial sepsis screen is negative. Risk Assessment: Do you want to hurt yourself or someone else? Patient reports no desire to harm self or others. Onset of symptoms was June 10, 2021. 21:50 Method Of Arrival: Ambulatory vc1 21:50 Acuity: LUIGI 4 vc1 Triage Assessment: 21:57 General: Appears in no apparent distress. Behavior is calm, cooperative, appropriate vc1 for age. Pain: Complains of pain in Generalized aches. GI: Reports diarrhea, nausea. Historical: - Allergies: 06/11 01:26 No Known Allergies; vc1 - Immunization history:: Adult Immunizations up to date, Client reports having NOT received the Covid vaccine. - Social history:: Smoking status: Patient reports the use of cigarette tobacco products. Screenin:28 Abuse screen: Denies threats or abuse. Denies injuries from another. Nutritional mr2 screening: No deficits noted. Tuberculosis screening: No symptoms or risk factors identified. Fall Risk Secondary diagnosis (15 points) impaired mobility, Mental Status- Overestimates/Forgets Limitations (15 pts.). Assessment: 02:29 GI: Abdomen is flat, non-distended, Pt is actively vomiting Last BM was June 102021. Vital Signs: 06/10 21:50 BP 134 / 78; Pulse 64; Resp 16; Temp 98.5; Pulse Ox 98% on R/A; Weight 77.11 kg; Height vc1 5 ft. 9 in. (175.26 cm); Pain 5/10; 06/11 02:40 BP 128 / 70; Pulse 70; Resp 17; Temp 98.4; Pulse Ox 100% on R/A; mr2 06/10 21:50 Body Mass Index 25.10 (77.11 kg, 175.26 cm) vc1 ED Course: 06/10 20:40 Patient arrived in ED. 21:57 Triage completed. vc1 22:00 Arm band placed on right wrist. vc1 06/11 02:27 Harvey Mayorga, RN is Primary Nurse. mr2 02:28 Davion Leach MD is Attending Physician. pkfrida 02:29 No provider procedures requiring assistance completed. Patient did not have IV access mr2 during this emergency room visit. 02:30 Patient has correct armband on for positive identification. Bed in low position. Call mr2 light in reach. Side rails up X2. Administered Medications: No medications were administered Outcome: 03:06 AMA AMA form signed mr2 03:06 Condition: stable 03:06 Instructed on risks of leaving wo further labs consults testing. worsening of condition loss of life 03:07 Patient left the ED. mr2 Signatures: Davion Leach MD MD pkl Marsh, Wendy Harvey Mayorga, MORRIS CACERES mr2 Edel Bernal RN RN vc1 Corrections: (The following items were deleted from the chart) 01:26 01:26 Arm band placed on right wrist. vc1 vc1
--- NOTE | 2021-06-11 03:08 | EDPHYS ---
Physician Documentation [facility] [place] Name: Jason Galeano Age: 20 yrs Sex: Male : 2000 Arrival Date: 06/10/2021 Time: 20:40 Bed 23 Private MD: ED Physician Davion Leach HPI: 06/11 02:35 This 20 yrs old Male presents to ER via Ambulatory with complaints of Nausea, Fatigue, pkl Hard time focuing, disoriented. 02:35 The patient presents to the emergency department with nausea. Onset: The pkl symptoms/episode began/occurred this morning. Associated signs and symptoms: Pertinent positives: chills. Patient not vaccinated for Covid 19. Historical: - Allergies: 01:26 No Known Allergies; vc1 - Immunization history:: Adult Immunizations up to date, Client reports having NOT received the Covid vaccine. - Social history:: Smoking status: Patient reports the use of cigarette tobacco products. ROS: 02:37 Eyes: Negative for injury, pain, redness, and discharge, ENT: Negative for injury, pkl pain, and discharge, Neck: Negative for injury, pain, and swelling, Cardiovascular: Negative for chest pain, palpitations, and edema, Respiratory: Negative for shortness of breath, cough, wheezing, and pleuritic chest pain. 02:37 Abdomen/GI: Negative for nausea, diarrhea. 02:37 Back: Negative for acute changes. 02:37 : Negative for urinary symptoms. 02:37 MS/extremity: Negative for acute changes. 02:37 Skin: Negative for rash. 02:37 Neuro: Negative for altered mental status, loss of consciousness. Exam: 02:37 Head/Face: Normocephalic, atraumatic. Eyes: Pupils equal round and reactive to light, pkl extra-ocular motions intact. Lids and lashes normal. Conjunctiva and sclera are non-icteric and not injected. Cornea within normal limits. Periorbital areas with no swelling, redness, or edema. ENT: Nares patent. No nasal discharge, no septal abnormalities noted. Tympanic membranes are normal and external auditory canals are clear. Oropharynx with no redness, swelling, or masses, exudates, or evidence of obstruction, uvula midline. Mucous membranes moist. Neck: Trachea midline, no thyromegaly or masses palpated, and no cervical lymphadenopathy. Supple, full range of motion without nuchal rigidity, or vertebral point tenderness. No Meningismus. Chest/axilla: Normal chest wall appearance and motion. Nontender with no deformity. No lesions are appreciated. Cardiovascular: Regular rate and rhythm with a normal S1 and S2. No gallops, murmurs, or rubs. Normal PMI, no JVD. No pulse deficits. Respiratory: Lungs have equal breath sounds bilaterally, clear to auscultation and percussion. No rales, rhonchi or wheezes noted. No increased work of breathing, no retractions or nasal flaring. Abdomen/GI: Soft, non-tender, with normal bowel sounds. No distension or tympany. No guarding or rebound. No evidence of tenderness throughout. Back: No spinal tenderness. No costovertebral tenderness. Full range of motion. Skin: Warm, dry with normal turgor. Normal color with no rashes, no lesions, and no evidence of cellulitis. MS/ Extremity: Pulses equal, no cyanosis. Neurovascular intact. Full, normal range of motion. Neuro: Awake and alert, GCS 15, oriented to person, place, time, and situation. Cranial nerves II-XII grossly intact. Motor strength 5/5 in all extremities. Sensory grossly intact. Cerebellar exam normal. Normal gait. Vital Signs: 06/10 21:50 BP 134 / 78; Pulse 64; Resp 16; Temp 98.5; Pulse Ox 98% on R/A; Weight 77.11 kg; Height vc1 5 ft. 9 in. (175.26 cm); Pain 5/10; 06/11 02:40 BP 128 / 70; Pulse 70; Resp 17; Temp 98.4; Pulse Ox 100% on R/A; mr2 06/10 21:50 Body Mass Index 25.10 (77.11 kg, 175.26 cm) vc1 MDM: 02:28 Patient medically screened. pkl 03:05 Data reviewed: vital signs, nurses notes. ED course: Patient does not want blood tests pkl done Sign AMA. 06/11 01:00 Order name: SARS-COV-2 RT PCR; Complete Time: 02:28 EDMS 06/11 02:34 Order name: CBC with Diff pkl Administered Medications: No medications were administered Disposition Summary: 06/11/21 03:07 Left Against Medical Advice Location: Home mr2 Condition: Stable mr2 Signatures: Dispatcher [employer] EDDavion Benitez MD MD pkl Reynard, Mike, RN RN mr2 Edel Bernal RN RN vc1 Corrections: (The following items were deleted from the chart) 01:00 00:44 CORONAVIRUS+BRZ ordered. EDMS EDMS
[2021-06-11 03:17] VITALS: BP 128/70; TEMP 98.4; O2SAT 100
== END 2021-06-11 03:07 | disposition left against medical advice (07) ==
LOC: ER 20:33
DX: R11.0 Nausea (principal); Z53.21 Procedure and treatment not carried out due to patient leaving prior to being seen by health care provider; Z20.822 Contact with and (suspected) exposure to COVID-19
CPT/HCPCS: 99281; U0003